=== PATIENT | female | born 1980 ===

== ENCOUNTER 2018-01-03 06:55 | Inpatient (IN) | payer SELFPAY ==
[2017-12-26 08:22] VITALS: BMI 17.3
[2018-01-03] MEDS ORDERED: cefOXitin IV 1 gm in Dextrose 1 GM/50 ML BAG IVPB ONE (07:43)
[2018-01-03] MEDS ORDERED: Lactated Ringer's 1,000 ML IV ONE ×3 (08:20→11:38)
[2018-01-03] MEDS ORDERED: Propofol 10 mg/ml Inj (20 ML) ONE (09:03)
[2018-01-03] MEDS ORDERED: Midazolam 2 MG/2 ML VIAL ONE (09:03)
--- NOTE | 2018-01-03 09:03 | CP.PCM.HP ---
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 No pain this morning. NPO status maintained since last night. Patient previously taking contraception that she discontinued last week with LMP : 01/01/18, minimal spotting today. Menses was heavier than usual, without pain. Feeling well this morning, anxious about surgery. PMH: dermoid cyst, uterine fibroid, HSV- last outbreak 1 year ago. Medications: Acyclovir Allergies: NKDA Surgical Hx: Denies Social Hx: no tobacco, no illicit drugs, occasional etoh use Family Hx: Parents alive and healthy Present on Admission - Present on Admission Any Indicators Present on Admission: No Review of Systems - Constitutional Constitutional: absent: Chills, Fever, Headache - EENT Eyes: absent: Change in Vision Nose/Mouth/Throat: absent: Nasal Congestion, Dysphagia - Cardiovascular Cardiovascular: absent: Chest Pain, Chest Pain at Rest, Dyspnea, Dyspnea on Exertion, Palpitations, Pedal Edema, Syncope - Respiratory Respiratory: absent: Cough, Dyspnea, Dyspnea on Exertion, Chest Congestion - Gastrointestinal Gastrointestinal: absent: Abdominal Pain, Bloating, Cramping, Diarrhea, Heartburn, Nausea, Vomiting - Genitourinary Genitourinary: absent: Difficulty Urinating, Dysuria, Hematuria - Reproductive: Female Reproductive:Female: As Per HPI - Menstruation Menstruation: As Per HPI - Musculoskeletal Musculoskeletal: absent: Myalgias, Numbness, Tingling - Neurological Neurological: absent: Dizziness - Hematologic/Lymphatic Hematologic: absent: Easy Bleeding, Easy Bruising Past Patient History - Tetanus Immunizations Tetanus Immunization: Unknown - Past Medical History & Family History Past Medical History?: Yes Past Family History: Reviewed and not pertinent - Past Social History Smoking Status: Never Smoked Alcohol: Occasional Drugs: Denies - CARDIAC Hx Cardiac Disorders: No - PULMONARY Hx Respiratory Disorders: No - NEUROLOGICAL Hx Neurological Disorder: No - HEENT Hx HEENT Problems: No - RENAL Hx Chronic Kidney Disease: No - ENDOCRINE/METABOLIC Hx Endocrine Disorders: No - HEMATOLOGICAL/ONCOLOGICAL Hx Anemia: Yes - INTEGUMENTARY Hx Dermatological Problems: No - MUSCULOSKELETAL/RHEUMATOLOGICAL Hx Musculoskeletal Disorders: No - GASTROINTESTINAL Hx Gastrointestinal Disorders: No - GENITOURINARY/GYNECOLOGICAL Hx Genitourinary Disorders: No - PSYCHIATRIC Hx Psychophysiologic Disorder: No - SURGICAL HISTORY Hx Surgeries: No - ANESTHESIA Hx Anesthesia: No Hx Anesthesia Reactions: No Hx Malignant Hyperthermia: No Has any member of the family had a problem w/ anesthesia?: No Meds Allergies/Adverse Reactions: Allergies Allergy/AdvReac Type Severity Reaction Status Date / Time No Known Allergies Allergy Verified 01/03/18 07:25 Physical Exam - Constitutional Appears: Well, Non-toxic, No Acute Distress - Head Exam Head Exam: ATRAUMATIC, NORMAL INSPECTION, NORMOCEPHALIC - Eye Exam Eye Exam: EOMI, Normal appearance, PERRL - ENT Exam ENT Exam: Mucous Membranes Moist, Normal Exam - Neck Exam Neck exam: Positive for: Normal Inspection - Respiratory Exam Respiratory Exam: Clear to Auscultation Bilateral, NORMAL BREATHING PATTERN. absent: Accessory Muscle Use, Respiratory Distress - Cardiovascular Exam Cardiovascular Exam: REGULAR RHYTHM, +S1, +S2. absent: Bradycardia, Tachycardia - GI/Abdominal Exam GI & Abdominal Exam: Normal Bowel Sounds, Soft. absent: Distended, Guarding, Tenderness - Rectal Exam Rectal Exam: Deferred - Extremities Exam Extremities exam: Positive for: normal inspection. Negative for: pedal edema - Neurological Exam Neurological exam: Alert, CN II-XII Intact, Oriented x3 - Psychiatric Exam Psychiatric exam: Normal Affect, Normal Mood - Skin Skin Exam: Dry, Intact, Normal Color, Warm Results - Vital Signs Recent Vital Signs: Last Vital Signs Temp 98.1 F 01/03/18 07:57 Pulse 72 01/03/18 07:57 Resp 18 01/03/18 07:57 BP 107/69 01/03/18 07:57 Pulse Ox 100 01/03/18 07:57 - Labs Result Diagrams: 01/03/18 09:10 Labs: Laboratory Results - last 24 hr 01/03/18 01/03/18 07:24 07:50 Blood Type A POSITIVE Blood Type Confirm A POSITIVE Antibody Screen Negative BBK History Checked No verified bt - Imaging and Cardiology MRI - abdomen Status: Report reviewed by me Additional comment: Pelvic MRI : 12/13/17 FINDINGS: The uterus is anteverted. There is a left posterior intramural/ subserosal uterine mass measuring roughly 1.8 x 2.3 cm, demonstrating low T1 and high T2 signal, consistent with necrotic uterine fibroid. There is no other uterine mass identified. The endometrium is normal in width. The junctional zone is normal in width. There is no endometrial fluid appreciated. The cervix is normal in appearance. There is a right parasagittal mass containing both a fluid component as well as a heterogeneous solid component. This mass measures 5.0 x 5.3 x 6.1 cm. The signal from the solid component almost uniformly suppresses with fat saturation imaging and demonstrates no enhancement following intravenous gadolinium administration. This is consistent with a dermoid tumor as previously demonstrated on CT examination. A mole the cystic component demonstrates a fluid / fluid level, with the anterior fluid demonstrating bright T1 signal left suppresses with fat sat imaging. . Findings are consistent with dermoid tumor. There is no suspicion of malignant degeneration. A normal right ovary is demonstrated, and the dermoid tumor is felt to be arising from the left ovary. The urinary bladder and urethra are unremarkable. The vagina is normal in appearance. There is no ascites. There is no pelvic lymphadenopathy. The marrow signal of the visualized osseous structures is within normal limits. 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 Unremarkable right ovary. Probable necrotic left-sided uterine fibroid, 2.3 cm. No additional abnormality. Assessment & Plan (1) Dermoid cyst of left ovary Assessment and Plan: 37 year old with left ovarian dermoid cyst measuring 6.1 cm, probable necrotic left-sided uterine fibroid, 2.3 cm here for laparotomy for same. -T&S done -labs and imaging reviewed. Case d/w Dr. Gilman. Status: Acute (2) Uterine fibroid Status: Acute Decision To Admit - Pt Status Changed To: Hospital Disposition Of: Inpatient - Admit Certification Admit to Inpatient:: After my assessment, the patient will require hospitalization for at least two midnights. This is because of the severity of symptoms shown, intensity of services needed, and/or the medical risk in this patient being treated as an outpatient. - . Bed Request Type: Med/Surg Admitting Physician: Alonzo Gilman
[2018-01-03] MEDS ORDERED: Rocuronium 10 mg/ml (5 ml) ONE (09:04)
[2018-01-03] MEDS ORDERED: Succinylcholine 200 mg/10 ml Inj IV ONE (09:04)
[2018-01-03 09:14] LABS: BASO % 0.5 % (0.0-2.0); EOS % 0.8 % (0.0-4.0); HEMOGLOBIN 13.6 g/dL (12.0-16.0); LYMPH % 34.6 % (20.0-40.0); MEAN CELL VOLUME 90.6 fl (81.0-99.0); MEAN CORPUSCULAR HEMOGLOBIN 30.9 pg (27.0-31.0); MEAN PLATELET VOLUME 7.8 fl (7.2-11.7); MONO # 0.4 K/uL (0.0-0.8); MONO % 6.5 % (0.0-10.0); NEUT # 3.3 K/uL (1.8-7.0); NEUT % 57.6 % (50.0-75.0); NRBC % 0.1 % (0.0-0.0); RBC 4.39 Mil/uL (3.80-5.20); RED CELL DISTRIBUTION WIDTH 12.6 % (11.5-14.5); WHITE BLOOD COUNT 5.7 K/uL (4.8-10.8)
[2018-01-03] MEDS ORDERED: Oxycodone/Acetaminophen 5/325 mg Tab PO PRN (09:57)
[2018-01-03] MEDS: HYDROmorphone 0.5 mg/0.5 ml ISec IVP PRN ×3 (12:00→13:16)
[2018-01-03] MEDS ORDERED: HYDROmorphone 0.5 mg/0.5 ml ISec ONE (12:01)
--- NOTE | 2018-01-03 18:11 | CP.PCM.PCO ---
Addendum Addendum: 01/03/18 18:02 POD#0 s/p laparotomy w/ left saplingo-oophorectomy and myomectomy Patient sitting up in bed smiling. Has pain, mostly controlled with BLIND INSTALLER. Her family is bedside. She tolerated small amount of liquids. Doing well postoperatively. Tolerating liquids. Will advance diet in AM. BLIND INSTALLER and Hidalgo to be discontinued in AM. Continue with present management for now. Will discuss with attending. Sukhi PGY2
[2018-01-03] MEDS: Lactated Ringer's 1,000 ML IV SCH (22:15)
[2018-01-04] MEDS: Lactated Ringer's 1,000 ML IV SCH ×2 (08:15→19:21)
--- NOTE | 2018-01-04 08:18 | CP.PCM.PN ---
Subjective - Date & Time of Evaluation Date of Evaluation: 01/04/18 Time of Evaluation: 08:14 - Subjective Subjective: POD #1 s/p laparotomy w/ salpingo-oophorectomy with myomectomy Doing well, appropriately tender around incision site. Pain is controlled with ANIME ARTIST. Sitting out of bed to chair. Tolerating liquid diet, thirsty. No nausea or vomiting. Incetive spirometer bedside. Hidalgo was d/c this morning. Dressing removed. Objective - Vital Signs/Intake and Output Vital Signs (last 24 hours): Temp Pulse Resp BP Pulse Ox 98.6 F 78 16 108/68 99 01/04/18 04:00 01/04/18 04:00 01/04/18 04:00 01/04/18 04:00 01/04/18 04:00 - Medications Medications: Current Medications Docusate Sodium (Colace) 100 mg PO BID [facility] Enoxaparin Sodium (Lovenox) 40 mg SC DAILY [facility] PRN Reason: Protocol Lactated Ringer's (Lactated Ringer's) 1,000 mls @ 100 mls/hr IV .Q10H [facility] Last Admin: 01/03/18 22:15 Dose: Not Given Morphine Sulfate (Morphine Metal Tube Cutter 1 Mg/Ml) 0 mg IV PRN PRN; Protocol PRN Reason: Pain, moderate (4-7) Ondansetron HCl (Zofran Inj) 4 mg IVP Q8 PRN PRN Reason: Nausea/Vomiting Ondansetron HCl (Zofran Odt) 4 mg PO Q6H [facility] Last Admin: 01/04/18 05:28 Dose: 4 mg Oxycodone/Acetaminophen (Percocet 5/325 Mg Tab) 1 tab PO Q4 PRN PRN Reason: Pain, moderate (4-7) Stop: 01/06/18 09:58 Oxycodone/Acetaminophen (Percocet 5/325 Mg Tab) 2 tab PO Q4 PRN PRN Reason: Pain, severe (8-10) Stop: 01/06/18 09:58 - Labs Labs: 01/03/18 09:10 - Constitutional Appears: Well, Non-toxic, No Acute Distress - Head Exam Head Exam: ATRAUMATIC, NORMAL INSPECTION, NORMOCEPHALIC - Eye Exam Eye Exam: EOMI, Normal appearance, PERRL - ENT Exam ENT Exam: Mucous Membranes Moist - Respiratory Exam Respiratory Exam: Clear to Ausculation Bilateral, NORMAL BREATHING PATTERN. absent: Accessory Muscle Use, Decreased Breath Sounds, Rales, Rhonchi, Wheezes - Cardiovascular Exam Cardiovascular Exam: REGULAR RHYTHM, +S1, +S2. absent: Bradycardia, Tachycardia - GI/Abdominal Exam GI & Abdominal Exam: Soft, Tenderness (around incision). absent: Distended Additional comments: dressing removed, incision covered with steri strips, clean and dry, intact - Neurological Exam Neurological Exam: Alert, Awake, CN II-XII Intact - Psychiatric Exam Psychiatric exam: Normal Affect, Normal Mood - Skin Skin Exam: Dry, Intact, Normal Color, Warm Assessment and Plan (1) Dermoid cyst of left ovary Assessment & Plan: POD #1 s/p laparotomy w/ salpingo-oophorectomy with myomectomy Doing well postoperatively. Encouraged to be out of bed, ambulating with assistance. Incentive spirometer bedside Will advance diet as tolerated. ANIME ARTIST to be discontinued. Will start percocet for pain control. will discuss with attending. Sukhi PGY2 Status: Acute (2) Uterine fibroid Status: Acute
[2018-01-04] MEDS: Enoxaparin 40 mg Syringe SC SCH (08:58)
[2018-01-04 10:30] LABS: BASO % 0.2 % (0.0-2.0); LYMPH # 1.5 K/uL (1.0-4.3); LYMPH % 12.5 % (20.0-40.0); MEAN CELL VOLUME 90.5 fl (81.0-99.0); MEAN CORPUSCULAR HEMOGLOBIN 31.2 pg (27.0-31.0); MEAN CORPUSCULAR HGB CONC 34.4 g/dL (33.0-37.0); MEAN PLATELET VOLUME 8.2 fl (7.2-11.7); MONO # 0.7 K/uL (0.0-0.8); MONO % 5.8 % (0.0-10.0); NEUT # 9.6 K/uL (1.8-7.0); NEUT % 81.5 % (50.0-75.0); RBC 4.18 Mil/uL (3.80-5.20); RED CELL DISTRIBUTION WIDTH 12.4 % (11.5-14.5); WHITE BLOOD COUNT 11.8 K/uL (4.8-10.8)
[2018-01-04] MEDS: Oxycodone/Acetaminophen 5/325 mg Tab PO PRN (13:29)
--- NOTE | 2018-01-04 14:25 | CP.PCM.PN ---
Subjective - Date & Time of Evaluation Date of Evaluation: 01/04/18 Time of Evaluation: 01:30 - Subjective Subjective: Patient seen and evaluated today. POD #1 s/p Laparotomy with left salpingoopherectomy and myomectomy. Patient states pain well controlled with meds. Patient ambulating to bathroom and denies urinary symptoms. No vaginal bleeding. Patient tolerating diet and denies nausea or vomiting Objective - Vital Signs/Intake and Output Vital Signs (last 24 hours): Temp Pulse Resp BP Pulse Ox 98.2 F 83 20 98/64 L 100 01/04/18 08:18 01/04/18 08:18 01/04/18 08:18 01/04/18 08:18 01/04/18 08:18 - Medications Medications: Current Medications Docusate Sodium (Colace) 100 mg PO BID [facility] Last Admin: 01/04/18 08:59 Dose: 100 mg Enoxaparin Sodium (Lovenox) 40 mg SC DAILY [facility] PRN Reason: Protocol Last Admin: 01/04/18 08:58 Dose: 40 mg Lactated Ringer's (Lactated Ringer's) 1,000 mls @ 100 mls/hr IV .Q10H [facility] Last Admin: 01/03/18 22:15 Dose: Not Given Ondansetron HCl (Zofran Inj) 4 mg IVP Q8 PRN PRN Reason: Nausea/Vomiting Ondansetron HCl (Zofran Odt) 4 mg PO Q6H [facility] Last Admin: 01/04/18 11:42 Dose: 4 mg Oxycodone/Acetaminophen (Percocet 5/325 Mg Tab) 1 tab PO Q4 PRN PRN Reason: Pain, moderate (4-7) Stop: 01/06/18 09:58 Last Admin: 01/04/18 13:29 Dose: 1 tab Oxycodone/Acetaminophen (Percocet 5/325 Mg Tab) 2 tab PO Q4 PRN PRN Reason: Pain, severe (8-10) Stop: 01/06/18 09:58 - Labs Labs: 01/04/18 10:10 - Constitutional Appears: No Acute Distress - Head Exam Head Exam: ATRAUMATIC - Respiratory Exam Respiratory Exam: Clear to Ausculation Bilateral - Cardiovascular Exam Cardiovascular Exam: REGULAR RHYTHM - GI/Abdominal Exam Additional comments: Steri strips in place, no erythema or bruising, no active bleeding noted - Extremities Exam Additional comments: non tender - Neurological Exam Neurological Exam: Oriented x3 Assessment and Plan (1) Dermoid cyst of left ovary Status: Acute (2) Uterine fibroid Status: Acute - Assessment and Plan (Free Text) Assessment: Patient POD#1 s/p Laparotomy with left salpingoopherectomy and myomectomy Plan: --Continue Percocet/Motrin for pain --Encouraged ambulation, SCDs while in bed --Will advance to regular diet --Continue use of incentive spirometer while in bed --Will continue post op management
[2018-01-05] MEDS: Oxycodone/Acetaminophen 5/325 mg Tab PO PRN (04:55)
[2018-01-05 08:06] VITALS: BP 94/60; PULSE 84; RESP 18; TEMP 98.6; O2SAT 97
[2018-01-05] MEDS: Enoxaparin 40 mg Syringe SC SCH (09:00)
--- NOTE | 2018-01-05 12:17 | CP.PCM.DIS ---
Provider - Provider Date of Admission: 01/03/18 13:36 Attending physician: Alonzo Gilman MD Primary care physician: Cassie Marrero MD Time Spent in preparation of Discharge (in minutes): 30 Diagnosis - Discharge Diagnosis (1) Dermoid cyst of left ovary Status: Resolved Comment: s/p salpingo-oophorectomy (2) Uterine fibroid Status: Resolved Comment: s/p myomectomy Hospital Course - Lab Results Lab Results: Most Recent Lab Values WBC 11.8 K/uL (4.8-10.8) H D 01/04/18 10:10 RBC 4.18 Mil/uL (3.80-5.20) 01/04/18 10:10 Hgb 13.0 g/dL (12.0-16.0) 01/04/18 10:10 Hct 37.8 % (34.0-47.0) 01/04/18 10:10 MCV 90.5 fl (81.0-99.0) 01/04/18 10:10 MCH 31.2 pg (27.0-31.0) H 01/04/18 10:10 MCHC 34.4 g/dL (33.0-37.0) 01/04/18 10:10 RDW 12.4 % (11.5-14.5) 01/04/18 10:10 Plt Count 294 K/uL (130-400) 01/04/18 10:10 MPV 8.2 fl (7.2-11.7) 01/04/18 10:10 Neut % (Auto) 81.5 % (50.0-75.0) H 01/04/18 10:10 Lymph % (Auto) 12.5 % (20.0-40.0) L 01/04/18 10:10 [place] % (Auto) 5.8 % (0.0-10.0) 01/04/18 10:10 Eos % (Auto) 0.0 % (0.0-4.0) 01/04/18 10:10 Baso % (Auto) 0.2 % (0.0-2.0) 01/04/18 10:10 Neut # (Auto) 9.6 K/uL (1.8-7.0) H 01/04/18 10:10 Lymph # (Auto) 1.5 K/uL (1.0-4.3) 01/04/18 10:10 Hamb[place] # (Auto) 0.7 K/uL (0.0-0.8) 01/04/18 10:10 Eos # (Auto) 0.0 K/uL (0.0-0.7) 01/04/18 10:10 Baso # (Auto) 0.0 K/uL (0.0-0.2) 01/04/18 10:10 Blood Type A POSITIVE 01/03/18 07:24 Blood Type Confirm A POSITIVE 01/03/18 07:50 Antibody Screen Negative 01/03/18 07:24 BBK History Checked No verified bt 01/03/18 07:24 - Hospital Course Hospital Course: 37 year old female s/p POD #2 s/p laparotomy w/ salpingo-oophorectomy with myomectomy. Patient has been ambulating. she is tolerating regular diet. Pain is well controlled with percocet. Patient to be discharged home today. Motrin/ Percocet for pain control. Follow up with Dr. Yen in 1 week. Discharge Exam - Head Exam Head Exam: ATRAUMATIC, NORMAL INSPECTION, NORMOCEPHALIC - Eye Exam Eye Exam: EOMI, Normal appearance, PERRL - Respiratory Exam Respiratory Exam: Clear to PA & Lateral, NORMAL BREATHING PATTERN - Cardiovascular Exam Cardiovascular Exam: REGULAR RHYTHM, +S1, +S2 - GI/Abdominal Exam GI & Abdominal Exam: Soft, Tenderness (appropriately tender around incision) - Extremities Exam Extremities exam: pedal edema - Neurological Exam Neurological exam: Alert, CN II-XII Intact, Oriented x3 - Psychiatric Exam Psychiatric exam: Normal Affect, Normal Mood - Skin Skin Exam: Dry, Intact, Normal Color, Warm Discharge Plan - Follow Up Plan Condition: GOOD Disposition: HOME/ ROUTINE Instructions: Ovarian Cyst Removal, Laparoscopic Surgery, Uterine Fibroids (DC) Additional Instructions: follow up with pmd and Dr. Kingsley 7-10 days Referrals: Alonzo Gilman MD [Staff Provider] - Cassie Marrero MD [Primary Care Provider] -
--- NOTE | 2018-01-06 08:10 | OP ---
PROCEDURE DATE: 01/03/2018 PREOPERATIVE DIAGNOSES: Left adnexal mass and posterior necrotic fibroid with pelvic pain. POSTOPERATIVE DIAGNOSES: Left adnexal mass and posterior necrotic fibroid with pelvic pain. PROCEDURE: Exploratory laparotomy with left salpingo-oophorectomy and myomectomy. SURGEON: Alonzo Gilman MD OXYGEN THERAPIST: Dr. Jean Claude Rosas and , PGY-2. ESTIMATED BLOOD LOSS: 50 mL. URINE OUTPUT: 200 mL, clear at the end of the procedure. INTRAVENOUS FLUIDS: 3000 mL lactated Ringer's. COMPLICATIONS: None. PATHOLOGY: Left ovarian cyst and fallopian tube and uterine fibroid. CLOSURE: Subcuticular. DESCRIPTION OF PROCEDURE: The patient was noted to have left adnexal mass measuring approximately 6 cm noted on transvaginal ultrasound and pelvic MRI suspected dermoid diagnosed. The patient was also noted to have a uterine fibroid necrotic and appearance on the posterior surface of the uterus. The patient had a history of pelvic pain and due to this, she was advised to undergo a laparotomy procedure with removable of the left adnexal mass and the fibroid. The risks and benefits of the procedure including risks of bleeding, infection, and damaged to the surrounding organs and the increased risk of scarring pain and infertility were all discussed with the patient previously with Cuban interpretation and the consent was signed. The patient was taken to the operating room and given general anesthesia without difficulty. She was then prepped and draped in the dorsal supine position. A Pfannenstiel skin incision was then made with the scalpel and carried to the underlying fascia with the Bovie. The fascia was then incised in the midline and the incision was extended laterally using the Bovie. The inferior aspect of the fascial incision was then grasped with Radha clamps, elevated, and the underlying rectus muscles were dissected off with the Bovie, then bluntly. Attention was then turned to the superior aspect of the fascial incision, which in a similar fashion was dissected off with the Bovie and then bluntly. The rectus muscles were then meticulously in the midline, the peritoneum was identified, tented up, and entered with Metzenbaum scissors. This incision was extended laterally, superiorly and inferiorly paying close attention to the bladder. At this time, moist laparotomy sponges were used to pack the bowel away. The uterus and adnexa were then evaluated. The left ovarian mass was then found and appeared to be encompassing the entire left ovary. At this time, decision was made to perform a left salpingo-oophorectomy. Tricia clamps were then used. The clamp was then placed across the mesosalpinx, the ovary and tubes were then removed using the Bovie and this was handed off of the field to be sent to pathology. A suture ligation was then performed and good hemostasis was then noted. Following this, attention was then turned to the posterior aspect of uterus. The Bovie was used to incise the serosa, which was carried down to the fibroid. The fibroid was then grasped with the tenaculum and this was then bluntly dissected out. The specimen was handed off of the field. Running suture was then placed, followed by a baseball stitch and good hemostasis was then noted. Surgicel was then placed across over the site of the stitch and good hemostasis was seen. Copious irrigation was then performed. Attention was then again turned left adnexa and good hemostasis was then noted and inspection of the right adnexa revealed all normal findings. The uterus was then returned to the abdomen. The peritoneum was then closed with 2-0 Vicryl in a running fashion and the muscle was reapproximated in a running fashion. The fascia was then reapproximated with 0 Vicryl in a running fashion bilaterally to the midline. The Bovie was used to obtain good hemostasis on the subcutaneous fat layer and this layer was then also closed with 3-0 plain suture with 4 interrupted stitches. The skin was then closed with a 3-0 Monocryl on a Reinier needle for subcuticular stitch and this incision was covered with Steri-Strips and a sterile dressing. The patient tolerated the procedure well. All sponge, lap and needle counts were correct. The patient was awakened from anesthesia and transferred to the recovery room in stable condition. She was given 1 g of preoperatively for infection prophylaxis. Due to the nature of this case, my carpenter's assistant was requested, my carpenter's assistant Dr. Rosas was present for the entire case from the initial incision to the patient's transfer to the recovery room. He assisted with removal of the left adnexal mass and the fibroid. He also assisted with repair of the uterus and the suture ligation of the left adnexa. He assisted with closure of the abdominal cavity. His assistance was a vital part of this procedure. Alonzo Gilman MD
== END 2018-01-05 15:30 | disposition home or self-care (01) | DRG 359 ==
LOC: H.OPSURG 06:55 → H.MEDSURG1 13:36
PROVIDERS: ADMIT Obstetrics & Gynecology; ATTEND Obstetrics & Gynecology
PROC: 0UT10ZZ Resection of Left Ovary, Open Approach (ICD-10-PCS; 2018-01-03)
PROC: 0UT60ZZ Resection of Left Fallopian Tube, Open Approach (ICD-10-PCS; 2018-01-03)
PROC: 0UB90ZZ Excision of Uterus, Open Approach (ICD-10-PCS; principal; 2018-01-03 09:00)
DX: D27.1 Benign neoplasm of left ovary (principal); D25.9 Leiomyoma of uterus, unspecified